=== PATIENT | male | born 1990 | race Caucasian/White ===

== ENCOUNTER 2017-02-26 11:00 | Day surgery (SDC) | payer OTHER ==
[~2017-02-26] VITALS: Ht 177.8 cm; Wt 86.2 kg
[~2017-02-26 11:00] MED LIST: ESCITALOPRAM OXA5 MG PO; IBUPROFEN800 MG PO; KEFLEX500 MG PO; NORCO 5-325 TA1 EACH PO
[2017-02-26] MEDS ORDERED: HYDROCODON-ACE1 EAC8 PO (17:12)
--- NOTE | 2017-02-26 17:30 | NUR ---
LE 1700 UP TO BATHROOM WITH ONE PERSON ASSIST. VOIDED. BACK IN ROOM GETTING DRESSED.
--- NOTE | 2017-02-28 07:17 | OR ---
[facility] [address] [place], [place] [address] Signed DATE OF OPERATION: 02/26/2017 SURGEON: Allan Kerns MD PREOPERATIVE DIAGNOSIS: Fractured fibula, closed, displaced, right. POSTOPERATIVE DIAGNOSIS: Fractured fibula, closed, displaced, right. PROCEDURE: Open reduction and internal fixation. ANESTHESIA: General. SPECIMENS AND COMPLICATIONS: There were no specimens or complications. TOURNIQUET TIME: Tourniquet time was well under 40 minutes. WHAT WAS DONE: The patient was taken to the operating room. After anesthesia was induced and the airway secured, the patient was placed in the supine position with a small bump under the right hip. He was then prepped and draped in a routine sterile fashion. The leg was exsanguinated with elevation. A straight lateral approach was made to the distal fibula through skin and subcutaneous tissue. At this point, really no additional dissection was required because of the soft tissue disruption associated with the fracture displacement. The primary fracture line was gently distracted and we were able to evacuate the blood clot. The fracture was then reduced and held with a single bone-holding clamp. A single lag screw was then placed across the primary fracture line giving us excellent reduction and pretty firm fixation. We then augmented this with an 8-hole one-third semitubular lateral buttress plate. AP and lateral fluoroscopy confirmed good alignment, good position, and a stable construct. The wound was gently irrigated and closed in a standard fashion. Sterile dressings were applied and the patient was awakened and taken to recovery room where he arrived in stable condition. Counts were correct and antibiotic protocols were followed. Allan Kerns MD Electronically Signed By: ALLAN KERNS MD 02/28/17 0717 PATIENT NAME: KAMILA BOSTON OPERATIVE REPORT DATE OF : 89 PHYSICIAN: ALLAN KERNS MD REPORT #: [id number] REPORT IS CONFIDENTIAL AND NOT TO BE RELEASED WITHOUT AUTHORIZATION [address] [place] [address] Signed B/MODL /[id number] Electronically Signed By: ALLAN KERNS MD 02/28/17 0717 PATIENT NAME: KAMILA BOSTON OPERATIVE REPORT DATE OF : 89 PHYSICIAN: ALLAN KERNS MD REPORT #: [id number] REPORT IS CONFIDENTIAL AND NOT TO BE RELEASED WITHOUT AUTHORIZATION
== END 2017-02-26 17:15 | disposition home or self-care (01) ==
LOC: DS 11:00 → OPS 11:00 → DS 13:30 → OPS 17:15
PROVIDERS: Orthopaedic Surgery
PROC: 0QSJ04Z Reposition Right Fibula with Internal Fixation Device, Open Approach (ICD-10-PCS; principal; 2017-02-26 13:30)
DX: S82.831A Other fracture of upper and lower end of right fibula, initial encounter for closed fracture (principal); R56.9 Unspecified convulsions; F32.9 Major depressive disorder, single episode, unspecified; W10.9XXA Fall (on) (from) unspecified stairs and steps, initial encounter
CPT/HCPCS: 01480; 64445; 73600; C1713; J0690; J1100; J1885; J2250; J2405; J2704; J3010; J7120

== ENCOUNTER 2021-01-21 23:56 | Emergency (ER) | payer OTHER ==
[~2021-01-21] VITALS: Ht 177.8 cm; Wt 104.1 kg
[~2021-01-21 23:56] MED LIST changes: +HYDROCODON-ACE1 EAC8 PO
[2021-01-22] MEDS ORDERED: COLCHICINE0.6 M1 PO (02:28)
== END 2021-01-22 02:50 | disposition home or self-care (01) ==
LOC: ED 23:56
DX: R07.89 Other chest pain (principal); F17.290 Nicotine dependence, other tobacco product, uncomplicated
CPT/HCPCS: 71046; 80053; 84484; 85025; 85379; 93005; 93010; 96374; 99285-25; J1885